=== PATIENT | male | born 1950 | race Two or more races ===

== ENCOUNTER 2023-09-21 16:03 | Emergency (ER) | payer OTHER ==
[~2023-09-21] VITALS: Ht 167.6 cm; Wt 83.9 kg
[2023-09-21 16:24] VITALS: BP 150/61; TEMP 98.6; O2SAT 100
[2023-09-21 17:14] LABS: BASOPHILS # (AUTO) 0.1 K/uL (0.0-0.2); BASOPHILS % (AUTO) 1.1 % (0.0-2.0); EOSINOPHILS # (AUTO) 0.2 K/uL (0.0-0.7); EOSINOPHILS % (AUTO) 2.7 % (0.0-6.0); HEMATOCRIT 35 % (39-51); HEMOGLOBIN 12.4 g/dL (13.5-17.5); LYMPHOCYTES # (AUTO) 1.2 K/uL (0.8-4.8); LYMPHOCYTES % (AUTO) 16.7 % (20.0-44.0); MEAN CORPUSCULAR HEMOGLOBIN 36 PG (26.0-33.0); MEAN CORPUSCULAR HGB CONC 35 g/dl (31.0-36.0); MEAN CORPUSCULAR VOLUME 103 fL (80-96); MONOCYTES # (AUTO) 0.4 K/uL (0.1-1.30); MONOCYTES % (AUTO) 5.5 % (2.0-12.0); NEUTROPHILS # (AUTO) 5.5 K/uL (1.8-8.9); PLATELET COUNT (AUTO) 113 K/uL (150-450); RED BLOOD CELL COUNT(AUTO) 3.43 MIL/uL (4.5-6.0); RED CELL DISTRIBUTION WIDTH 14.7 % (11.5-15.0); WHITE BLOOD COUNT (AUTO) 7.4 K/uL (4.3-11.0)
[2023-09-21 17:25] LABS: CALCIUM, SERUM 8.8 mg/dL (8.5-10.1); CARBON DIOXIDE 23 mmol/L (21-32); CHLORIDE 110 mmol/L (98-107); CREATININE 1.4 mg/dL (0.6-1.3); GLUCOSE 110 mg/dL (74-106); POTASSIUM 4.5 mmol/L (3.5-5.1); SODIUM SERUM 140 mmol/L (136-145); UREA NITROGEN, BLOOD 30 mg/dL (7-18)
[2023-09-21 17:31] LABS: ALANINE AMINOTRANSFERASE 33 U/L (12-78); ALBUMIN 2.8 g/dL (3.4-5.0); ALKALINE PHOSPHATASE 142 U/L (46-116); ASPARTATE AMINOTRANSFERASE 44 U/L (15-37); BILIRUBIN,DIRECT 0.8 mg/dL (0.0-0.2); BILIRUBIN,TOTAL 2.3 mg/dL (0.2-1.0); LIPASE 268 U/L (16-77); TOTAL PROTEIN, SERUM 5.8 g/dL (6.4-8.2)
[2023-09-21] MEDS ORDERED: MORPHINE SULFATE INJ 2 MG/ML DISP.SYRIN ONE ×2 (17:47→21:27)
[2023-09-21] MEDS: MORPHINE SULFATE INJ 2 MG/ML DISP.SYRIN IV ONE ×2 (17:51→21:32)
[2023-09-21] MEDS: HYDROMORPHONE INJ 2 MG/ML DISP.SYRIN IV ONE (18:00)
[2023-09-21] MEDS: IV NS 0.9% 1,000 ML BAG IV ONE (18:01)
[2023-09-21 18:59] LABS: APPEARANCE,URINE Clear (CLEAR); BILIRUBIN,URINE Negative (NEGATIVE); BLOOD, URINE Trace-intact Ery/uL (NEGATIVE); COLOR,URINE YELLOW (YELLOW); KETONES,URINE Negative (NEGATIVE); LEUKOCYTE ESTERASE ,URINE Negative (NEGATIVE); NITRITE, URINE Negative (NEGATIVE); PROTEIN,URINE Negative (NEGATIVE); UGLUCOSE Negative (NEGATIVE)
[2023-09-21] MEDS ORDERED: RIFA200T2 PO (19:04)
[2023-09-21] MEDS ORDERED: CALC-1239 PO (19:04)
[2023-09-21] MEDS ORDERED: LOSA50TA39 PO (19:04)
[2023-09-21] MEDS ORDERED: LACT10SO29 PO (19:04)
[2023-09-21] MEDS ORDERED: FURO20TA4 PO (19:04)
[2023-09-21] MEDS ORDERED: CARB15DR12 EACH EAR (19:04)
[2023-09-21] MEDS ORDERED: ERGO500093 PO (19:04)
[2023-09-21] MEDS ORDERED: DICL100G34 TP (19:04)
[2023-09-21 19:30] LABS: ADD URINE CULTURE NO; SQUAMOUS EPITHELIAL CELL,UR Rare /HPF (None Seen); WBC,URINE 0-2 /HPF (0-3)
[2023-09-21 19:31] LABS: BACTERIA,URINE Rare /HPF (None Seen)
== END 2023-09-22 03:14 | disposition short-term general hospital (02) ==
LOC: ER 16:06
DX: K85.90 Acute pancreatitis without necrosis or infection, unspecified (principal); K74.60 Unspecified cirrhosis of liver; I10 Essential (primary) hypertension; Z88.0 Allergy status to penicillin
CPT/HCPCS: 99285; 74176; 96374; 76700; 96361; 96376; 85025; 80048; 83690; 80076; 81001; 36415; J7030; J2270 ×2